=== PATIENT | male | born 1935 | race Caucasian/White ===

== ENCOUNTER → 2016-11-03 | Outpatient (CLI) | payer MEDICARE ==
[~2016-11-03] MED LIST: ADULT LOW DOSE81 M1 PO; ATENOLOL25 M1 PO; FERROUS SULFAT325 MG PO; FINASTERIDE5 M1 PO; GLUCOSAMINE 1,1 EACH PO; METAMUCIL0.52 GM PO; Metamucil Packet PO; PERCOCET 5/31 TABLET PO; ROLAIDS PO; SIMVASTATIN10 M1 PO; STOOL SOFTENER1 EACH PO; TERAZOSIN HCL2 MG PO; Tenormin PO; VICODIN,LORT1 TABLET PO; Zocor PO
== END | disposition home or self-care (01) ==
LOC: CDC 14:26
DX: R94.31 Abnormal electrocardiogram [ECG] [EKG] (principal); I25.2 Old myocardial infarction
CPT/HCPCS: 93000